=== PATIENT | male | born 1950 | race Caucasian/White ===

== ENCOUNTER → 2019-05-06 10:35 | Outpatient (CLI) | payer OTHER, SELFPAY ==
--- NOTE | 2019-05-06 | DI.RAD.S_ITS ---
PROCEDURE: XR KNEE STANDING BI INDICATIONS: BILATERAL KNEE PAIN TECHNIQUE: 3 views of the left knee, and 3 views of the right knee. COMPARISON: None. FINDINGS: No acute fractures or dislocations. No focal osseous destruction. On the right, scattered degenerative subchondral sclerosis and spurring. Severe narrowing of the medial joint space with bone on bone appearance. Trace joint effusion. Right knee chondrocalcinosis On the left, scattered degenerative subchondral sclerosis and spurring. Severe narrowing of the medial joint space with [id number] appearance. Chondrocalcinosis projecting in the lateral compartment. No definite joint effusion. IMPRESSION: Severe bilateral knee joint degeneration as above Bilateral knee chondrocalcinosis. Dictated by: Reginald Andres M.D. on 05/06/2019 at 11:16 Approved by: Reginald Andres M.D. on 05/06/2019 at 11:19
== END ==
PROVIDERS: PCP Family Medicine; Referring Provider Family Medicine; Visit Provider Family Medicine
DX: M25.561 Pain in right knee (principal); M25.562 Pain in left knee; M17.0 Bilateral primary osteoarthritis of knee; M11.262 Other chondrocalcinosis, left knee; M11.261 Other chondrocalcinosis, right knee
CPT/HCPCS: 73565

== ENCOUNTER → 2022-10-26 09:12 | Outpatient (CLI) | payer OTHER, SELFPAY | PROVIDERS: Family Provider Family Medicine; PCP Family Medicine; Referring Provider Family Medicine; Visit Provider Family Medicine | DX: R20.0 Anesthesia of skin (principal); M65.342 Trigger finger, left ring finger | CPT/HCPCS: 95885; 95886; 95912 ==